=== PATIENT | female | born 1995 | race Caucasian/White ===

== ENCOUNTER 2016-12-09 21:26 | Emergency (ER) | payer OTHER ==
[~2016-12-09] VITALS: Ht 167.6 cm; Wt 66.7 kg
[~2016-12-09 21:26] MED LIST: ABILIFY20 MG PO; ANAPROX DS550 MG PO; AVPAK AZITHROM250 M1 PO; BACTRIM DS 8001 TA1 PO; BIRTH CONTROL1 EAC1 PO; BIRTHCONTROL PO; CLARITIN10 MG PO; CLEOCIN150 MG PO; CLINDAMYCIN HC300 MG PO; DESOGESTREL-ETH1 TAB PO; DICLEGIS DR 101 EACH PO; DIFLUCAN150 MG PO; DO NOT PROFILE T1 EA; FLONASE ALLERG9.9 ML NAS; HYDROCODONE BIT1 T11 PO; IBU800 M1 PO; KEFLEX500 M1 PO; KEFLEX500 MG PO; LIDEX 0.05% CRE15 GM T; MACROBID100 M1 PO; MEDROL DOSEPAK4 MG PO; MOTRIN800 MG PO; MYCOLOG CREAM 115 GM T; NAPROSYN500 MG PO; OMNICEF300 MG PO; PEN-VEE K500 MG PO; PEN-VK500 MG PO; PENICILLIN-VK500 M1 PO; PREDNISONE10 MG PO; PREDNISONE20 M1 PO; PRENATAL1 TA3 PO; PRILOSEC20 MG PO; PROVENTIL0.09 MG/A1 INH; Peridex 473 ML473 ML PO; RANITIDINE150 MG PO; ROBITUSSIN AC 110 ML PO; TESSALON PERLE100 MG PO; ULTRAM50 MG PO; VALIUM10 MG; VIBRAMYCIN100 MG PO; XANAX1 MG PO; ZANTAC150 MG PO; ZITHROMAX Z PA250 MG; ZITHROMAX Z PA250 MG PO; ZITHROMAX250 MG PO; ZOFRAN4 MG PO; ZOLOFT50 MG PO; ZYRTEC10 MG PO; Zofran4 MG PO; [UNRECOGNIZED DRUG - REMARK] PO
[2016-12-09 21:33] VITALS: BP 107/62
[2016-12-09] MEDS ORDERED: BACITRAYCIN PLU28 GM TP (23:01)
== END 2016-12-09 23:33 | disposition home or self-care (01) ==
LOC: ED 21:26
DX: O9A.212 Injury, poisoning and certain other consequences of external causes complicating pregnancy, second trimester (principal); S80.211A Abrasion, right knee, initial encounter; Z3A.20 20 weeks gestation of pregnancy; F17.200 Nicotine dependence, unspecified, uncomplicated; W18.30XA Fall on same level, unspecified, initial encounter; Y93.89 Activity, other specified; Y92.9 Unspecified place or not applicable; Y99.9 Unspecified external cause status

== ENCOUNTER 2016-12-17 09:34 | Emergency (ER) | payer OTHER ==
[~2016-12-17] VITALS: Ht 167.6 cm; Wt 61.7 kg
[~2016-12-17 09:34] MED LIST changes: +BACITRAYCIN PLU28 GM TP
[2016-12-17 09:43] VITALS: BP 134/65
[2016-12-17] MEDS ORDERED: AMOXICILLIN500 M2 PO (10:14)
== END 2016-12-17 10:21 | disposition home or self-care (01) ==
LOC: ED 09:34
DX: O99.512 Diseases of the respiratory system complicating pregnancy, second trimester (principal); J20.9 Acute bronchitis, unspecified; F17.200 Nicotine dependence, unspecified, uncomplicated; Z79.899 Other long term (current) drug therapy; Z3A.21 21 weeks gestation of pregnancy

== ENCOUNTER 2017-03-28 21:19 | Emergency (ER) | payer OTHER ==
[~2017-03-28] VITALS: Ht 167.6 cm; Wt 74.8 kg
[~2017-03-28 21:19] MED LIST changes: +AMOXICILLIN500 M2 PO
[2017-03-28 23:32] VITALS: BP 115/70
== END 2017-03-29 00:31 | disposition other institution (70) ==
LOC: ED 21:19
DX: O26.893 Other specified pregnancy related conditions, third trimester (principal); O99.333 Smoking (tobacco) complicating pregnancy, third trimester; R10.30 Lower abdominal pain, unspecified; F17.200 Nicotine dependence, unspecified, uncomplicated; Z3A.35 35 weeks gestation of pregnancy

== ENCOUNTER 2017-06-24 18:38 | Emergency (ER) | payer OTHER ==
[~2017-06-24] VITALS: Ht 170.1 cm; Wt 61.2 kg
[2017-06-24 18:44] VITALS: BP 118/66
[2017-06-24 19:17] LABS: BILIRUBIN NEGATIVE (NEGATIVE); BLOOD TRACE-INTACT (NEGATIVE); CLARITY CLEAR (CLEAR); COLOR YELLOW (YELLOW); GLUCOSE NEGATIVE (NEGATIVE); KETONE NEGATIVE (NEGATIVE); LEUKO ESTERASE 1+ (NEGATIVE); NITRITE NEGATIVE (NEGATIVE); SPECIFIC GRAVITY >= 1.030 (1.005-1.030); UROBILINOGEN 0.2 E.U./dl (0.2-1.0)
[2017-06-24 19:30] LABS: BACTERIA 3+; EPITHELIAL CELLS 21-30
[2017-06-24] MEDS ORDERED: AMINOPHYLLIN200 MG PO (19:57)
== END 2017-06-24 20:03 | disposition home or self-care (01) ==
LOC: ED 18:38
PROVIDERS: Physician Assistant
DX: N39.0 Urinary tract infection, site not specified (principal); F17.200 Nicotine dependence, unspecified, uncomplicated; Z79.899 Other long term (current) drug therapy

== ENCOUNTER 2017-07-07 09:18 | Emergency (ER) | payer OTHER ==
[~2017-07-07] VITALS: Ht 167.6 cm; Wt 61.7 kg
[~2017-07-07 09:18] MED LIST changes: +AMINOPHYLLIN200 MG PO
[2017-07-07 09:22] VITALS: BP 111/90
[2017-07-07 10:23] LABS: BILIRUBIN NEGATIVE (NEGATIVE); BLOOD NEGATIVE (NEGATIVE); CLARITY SL CLOUDY (CLEAR); COLOR YELLOW (YELLOW); GLUCOSE NEGATIVE (NEGATIVE); KETONE NEGATIVE (NEGATIVE); LEUKO ESTERASE TRACE (NEGATIVE); NITRITE NEGATIVE (NEGATIVE); UROBILINOGEN 0.2 E.U./dl (0.2-1.0)
[2017-07-07 10:25] LABS: BASO % 0.5 % (0.0-1.0); EOS # 0.2 10*3/uL (0.0-0.4); EOS % 5.3 % (1.0-4.0); HEMOGLOBIN 12.1 g/dl (12.0-16.0); LYMPH # 1.9 10*3/uL (1.3-4.4); LYMPH % 44.5 % (27.0-41.0); MEAN CORPUSCULAR HGB 30.4 pg (27.0-31.0); MEAN CORPUSCULAR HGB CONC 32.7 g/dl (33.0-37.0); MEAN PLATELET VOLUME 11.3 fl (9.6-12.3); MONO # 0.3 10*3/uL (0.1-1.0); MONO % 8.1 % (3.0-9.0); NEUT # 1.7 10*3/uL (2.3-7.9); NEUT % 41.6 % (47.0-73.0); PLATELET COUNT AUTOMATED 231 10*3/uL (130-400); RED BLOOD COUNT 3.98 10*6/uL (4.10-5.10); WHITE BLOOD COUNT 4.2 10*3/uL (4.8-10.8)
[2017-07-07 10:35] LABS: BACTERIA 2+; EPITHELIAL CELLS 20-30
[2017-07-07 10:44] LABS: ALBUMIN 3.7 gm/dl (3.1-4.5); ALKALINE PHOSPHATASE 79 U/L (45-117); BUN 10 mg/dl (7-24); CHLORIDE 106 mmol/L (98-107); CREATININE 0.68 mg/dL (0.55-1.02); POTASSIUM 4.1 mmol/L (3.5-5.1); SGOT/AST 9 IU/L (3-35); SGPT/ALT 17 U/L (12-78); SODIUM 140 mmol/L (136-145); TOTAL PROTEIN 7.1 gm/dL (6.4-8.2)
[2017-07-07] MEDS ORDERED: AMOXICILLIN500 M2 PO (10:56)
== END 2017-07-07 11:26 | disposition home or self-care (01) ==
LOC: ED 09:18
PROVIDERS: Nurse Practitioner Family
DX: Z32.02 Encounter for pregnancy test, result negative (principal); F17.200 Nicotine dependence, unspecified, uncomplicated; R11.2 Nausea with vomiting, unspecified; Z79.899 Other long term (current) drug therapy

== ENCOUNTER 2017-09-23 19:08 | Emergency (ER) | payer OTHER ==
[~2017-09-23] VITALS: Ht 170.1 cm; Wt 61.2 kg
[2017-09-23 19:29] VITALS: BP 123/87
== END 2017-09-23 20:55 | disposition home or self-care (01) ==
LOC: ED 19:08
DX: B34.9 Viral infection, unspecified (principal); F17.200 Nicotine dependence, unspecified, uncomplicated; Q75.0 Craniosynostosis; Z79.899 Other long term (current) drug therapy

== ENCOUNTER 2017-10-19 23:08 | Emergency (ER) | payer OTHER ==
[~2017-10-19] VITALS: Ht 170.1 cm; Wt 60.3 kg
[2017-10-19 23:31] VITALS: BP 116/57
== END 2017-10-20 01:34 | disposition home or self-care (01) ==
LOC: ED 23:08
DX: S50.12XA Contusion of left forearm, initial encounter (principal); S60.222A Contusion of left hand, initial encounter; W01.0XXA Fall on same level from slipping, tripping and stumbling without subsequent striking against object, initial encounter; Y93.89 Activity, other specified; Y92.89 Other specified places as the place of occurrence of the external cause; Y99.8 Other external cause status

== ENCOUNTER 2017-11-15 18:57 | Emergency (ER) | payer OTHER ==
[~2017-11-15] VITALS: Ht 170.1 cm; Wt 59.0 kg
[2017-11-15 19:00] VITALS: BP 104/88
[2017-11-15 19:53] LABS: BILIRUBIN NEGATIVE (NEGATIVE); BLOOD TRACE-INTACT (NEGATIVE); CLARITY SL CLOUDY (CLEAR); COLOR YELLOW (YELLOW); GLUCOSE NEGATIVE (NEGATIVE); KETONE NEGATIVE (NEGATIVE); LEUKO ESTERASE 1+ (NEGATIVE); NITRITE NEGATIVE (NEGATIVE); SPECIFIC GRAVITY >= 1.030 (1.005-1.030); UROBILINOGEN 0.2 E.U./dl (0.2-1.0)
[2017-11-15 20:03] LABS: BACTERIA 1+; EPITHELIAL CELLS 31-40
[2017-11-15 20:04] LABS: WBC 21-30 wbc/hpf (0-5)
[2017-11-15] MEDS ORDERED: SEPTDS PO ×2 (20:19→20:41)
== END 2017-11-15 20:28 | disposition home or self-care (01) ==
LOC: ED 18:57
PROVIDERS: Physician Assistant
DX: Z32.02 Encounter for pregnancy test, result negative (principal); R53.83 Other fatigue; N39.0 Urinary tract infection, site not specified

== ENCOUNTER 2018-12-06 20:07 | Emergency (ER) | payer OTHER ==
[~2018-12-06] VITALS: Ht 170.1 cm; Wt 72.1 kg
[~2018-12-06 20:07] MED LIST changes: +SEPTDS PO
[2018-12-06 20:10] VITALS: BP 112/77
[2018-12-06 20:44] LABS: BILIRUBIN NEGATIVE (NEGATIVE); BLOOD NEGATIVE (NEGATIVE); CLARITY SL CLOUDY (CLEAR); COLOR YELLOW (YELLOW); GLUCOSE NEGATIVE (NEGATIVE); KETONE NEGATIVE (NEGATIVE); LEUKO ESTERASE NEGATIVE (NEGATIVE); NITRITE NEGATIVE (NEGATIVE); SPECIFIC GRAVITY 1.015 (1.005-1.030)
[2018-12-06 20:51] LABS: BACTERIA 1+
[2018-12-09 00:03] LABS: GONOCOCCUS BY NAA Negative (Negative)
== END 2018-12-06 21:59 | disposition home or self-care (01) ==
LOC: ED 20:07
PROVIDERS: Emergency Medicine; Internal Medicine
DX: N89.8 Other specified noninflammatory disorders of vagina (principal); J45.909 Unspecified asthma, uncomplicated; Z79.2 Long term (current) use of antibiotics

== ENCOUNTER 2018-12-11 15:24 | Emergency (ER) | payer OTHER ==
[~2018-12-11] VITALS: Ht 170.1 cm; Wt 59.0 kg
[2018-12-11 16:59] VITALS: BP 105/43
== END 2018-12-11 17:40 | disposition home or self-care (01) ==
LOC: ED 15:24
DX: S09.90XA Unspecified injury of head, initial encounter (principal); H53.8 Other visual disturbances; R42 Dizziness and giddiness; F17.200 Nicotine dependence, unspecified, uncomplicated; Z79.2 Long term (current) use of antibiotics; W50.0XXA Accidental hit or strike by another person, initial encounter; Y93.89 Activity, other specified; Y92.59 Other trade areas as the place of occurrence of the external cause; Y99.8 Other external cause status

== ENCOUNTER 2019-02-09 20:22 | Emergency (ER) | payer OTHER ==
[~2019-02-09] VITALS: Ht 170.1 cm; Wt 56.7 kg
[2019-02-09 20:24] VITALS: BP 116/53
[2019-02-09 20:58] LABS: BILIRUBIN NEGATIVE (NEGATIVE); BLOOD 1+ (NEGATIVE); CLARITY SL CLOUDY (CLEAR); COLOR YELLOW (YELLOW); GLUCOSE NEGATIVE (NEGATIVE); KETONE NEGATIVE (NEGATIVE); LEUKO ESTERASE NEGATIVE (NEGATIVE); NITRITE NEGATIVE (NEGATIVE); SPECIFIC GRAVITY >= 1.030 (1.005-1.030); UROBILINOGEN 0.2 E.U./dl (0.2-1.0)
[2019-02-09 21:08] LABS: BACTERIA 2+; CALCIUM OXALATE CRYSTALS 1+; EPITHELIAL CELLS 21-30
== END 2019-02-09 22:20 | disposition left against medical advice (07) ==
LOC: ED 20:22
PROVIDERS: Nurse Practitioner Family
DX: R10.9 Unspecified abdominal pain (principal); Z32.02 Encounter for pregnancy test, result negative; F17.210 Nicotine dependence, cigarettes, uncomplicated

== ENCOUNTER → 2019-02-18 | Outpatient (CLI) | payer OTHER ==
[2019-02-18 10:42] LABS: BASO % 0.5 % (0.0-1.0); EOS # 0.3 10*3/uL (0.0-0.4); EOS % 5.7 % (1.0-4.0); HEMATOCRIT 41.8 % (37.0-47.0); HEMOGLOBIN 13.8 g/dl (12.0-16.0); LYMPH % 34.2 % (27.0-41.0); MEAN CELL VOLUME 97.4 fl (81.0-99.0); MEAN CORPUSCULAR HGB 32.2 pg (27.0-31.0); MEAN PLATELET VOLUME 11.7 fl (9.6-12.3); MONO # 0.4 10*3/uL (0.1-1.0); MONO % 7.2 % (3.0-9.0); NEUT # 3.1 10*3/uL (2.3-7.9); NEUT % 52.2 % (47.0-73.0); PLATELET COUNT AUTOMATED 172 10*3/uL (130-400); RED BLOOD COUNT 4.29 10*6/uL (4.10-5.10); RED CELL DISTRI WIDTH 12.2 % (0-14.5)
[2019-02-18 11:00] LABS: ALKALINE PHOSPHATASE 61 U/L (45-117); BUN 9 mg/dl (7-24); CHLORIDE 114 mmol/L (98-107); CREATININE 0.75 mg/dL (0.55-1.02); POTASSIUM 3.8 mmol/L (3.5-5.1); SGOT/AST 10 IU/L (3-35); SGPT/ALT 17 U/L (12-78); SODIUM 142 mmol/L (136-145); TOTAL PROTEIN 7.2 gm/dL (6.4-8.2)
== END | disposition home or self-care (01) ==
LOC: US 08:30 → LAB 10:21
PROVIDERS: Pediatrics
DX: N39.0 Urinary tract infection, site not specified (principal); K52.9 Noninfective gastroenteritis and colitis, unspecified; R07.89 Other chest pain

== ENCOUNTER → 2019-05-04 | Outpatient (CLI) | payer OTHER | END | disposition home or self-care (01) | LOC: LAB 14:00 | DX: N91.2 Amenorrhea, unspecified (principal) ==

== ENCOUNTER 2019-10-16 14:11 | Emergency (ER) | payer OTHER ==
[~2019-10-16] VITALS: Ht 170.1 cm; Wt 54.4 kg
[2019-10-16 14:27] VITALS: BP 107/84
[2019-10-16 14:49] LABS: COLOR YELLOW (YELLOW)
[2019-10-16 14:50] LABS: BILIRUBIN NEGATIVE (NEGATIVE); BLOOD 1+ (NEGATIVE); CLARITY SL CLOUDY (CLEAR); GLUCOSE NEGATIVE (NEGATIVE); KETONE NEGATIVE (NEGATIVE); LEUKO ESTERASE NEGATIVE (NEGATIVE); NITRITE NEGATIVE (NEGATIVE); UROBILINOGEN 0.2 E.U./dl (0.2-1.0)
[2019-10-16 15:12] LABS: BASO % 0.4 % (0.0-1.0); EOS # 0.3 10*3/uL (0.0-0.4); EOS % 4.5 % (1.0-4.0); HEMATOCRIT 36.6 % (37.0-47.0); HEMOGLOBIN 12.2 g/dl (12.0-16.0); LYMPH # 2.9 10*3/uL (1.3-4.4); LYMPH % 43.1 % (27.0-41.0); MEAN CELL VOLUME 96.1 fl (81.0-99.0); MEAN CORPUSCULAR HGB CONC 33.3 g/dl (33.0-37.0); MEAN PLATELET VOLUME 11.2 fl (9.6-12.3); MONO # 0.5 10*3/uL (0.1-1.0); MONO % 7.2 % (3.0-9.0); NEUT % 44.7 % (47.0-73.0); PLATELET COUNT AUTOMATED 197 10*3/uL (130-400); RED BLOOD COUNT 3.81 10*6/uL (4.10-5.10); RED CELL DISTRI WIDTH 11.9 % (0-14.5); WHITE BLOOD COUNT 6.7 10*3/uL (4.8-10.8)
[2019-10-16 15:14] LABS: BACTERIA 2+; MUCOUS TRACE; RBC 0-2 rbc/hpf (0-2)
[2019-10-16 15:29] LABS: ALKALINE PHOSPHATASE 53 U/L (45-117); BUN 6 mg/dl (7-24); CHLORIDE 110 mmol/L (98-107); CREATININE 0.54 mg/dL (0.55-1.02); POTASSIUM 3.8 mmol/L (3.5-5.1); SGOT/AST 5 IU/L (3-35); SGPT/ALT 13 U/L (12-78); SODIUM 139 mmol/L (136-145); TOTAL PROTEIN 6.9 gm/dL (6.4-8.2)
[2019-10-16] MEDS ORDERED: DICLEGIS DR 101 EACH PO (15:51)
[2019-10-16] MEDS ORDERED: PRENATE ELITE1 EAC1 PO (15:51)
[2019-10-16] MEDS ORDERED: ALIVE PRENATAL1 EACH PO (16:04)
== END 2019-10-16 16:01 | disposition home or self-care (01) ==
LOC: ED 14:11
PROVIDERS: Nurse Practitioner Family
DX: O21.8 Other vomiting complicating pregnancy (principal); O99.511 Diseases of the respiratory system complicating pregnancy, first trimester; J45.909 Unspecified asthma, uncomplicated; Z3A.01 Less than 8 weeks gestation of pregnancy

== ENCOUNTER 2020-10-16 15:34 | Emergency (ER) | payer OTHER ==
[~2020-10-16] VITALS: Ht 167.6 cm; Wt 61.2 kg
[~2020-10-16 15:34] MED LIST changes: +ALIVE PRENATAL1 EACH PO; +PRENATE ELITE1 EAC1 PO
[2020-10-16 15:43] VITALS: BP 110/84
[2020-10-16 16:16] LABS: BASO % 0.6 % (0.0-1.0); EOS # 0.2 10*3/uL (0.0-0.4); EOS % 3.2 % (1.0-4.0); HEMATOCRIT 39.4 % (37.0-47.0); LYMPH # 2.3 10*3/uL (1.3-4.4); LYMPH % 36.6 % (27.0-41.0); MEAN CELL VOLUME 93.1 fl (81.0-99.0); MEAN CORPUSCULAR HGB CONC 33.2 g/dl (33.0-37.0); MEAN PLATELET VOLUME 11.3 fl (9.6-12.3); MONO # 0.4 10*3/uL (0.1-1.0); MONO % 5.9 % (3.0-9.0); NEUT # 3.3 10*3/uL (2.3-7.9); NEUT % 53.2 % (47.0-73.0); PLATELET COUNT AUTOMATED 255 10*3/uL (130-400); RED BLOOD COUNT 4.23 10*6/uL (4.10-5.10); RED CELL DISTRI WIDTH 12.3 % (0-14.5); WHITE BLOOD COUNT 6.3 10*3/uL (4.8-10.8)
[2020-10-16 16:32] LABS: ALBUMIN 4.1 gm/dl (3.1-4.5); ALKALINE PHOSPHATASE 97 U/L (45-117); BUN 7 mg/dl (7-24); CHLORIDE 111 mmol/L (98-107); POTASSIUM 4.1 mmol/L (3.5-5.1); SGOT/AST 10 IU/L (3-35); SGPT/ALT 16 U/L (12-78); SODIUM 144 mmol/L (136-145); TOTAL PROTEIN 7.5 gm/dL (6.4-8.2)
[2020-10-16 16:57] LABS: BILIRUBIN Negative (Negative); BLOOD Negative (Negative); CLARITY Clear (Clear); COLOR Yellow (Yellow); GLUCOSE Negative (Negative); KETONE Negative (Negative); LEUKO ESTERASE 3+ (Negative); NITRITE Negative (Negative); PH 6.5 (4.5-8.0); UROBILINOGEN 0.2 E.U./dl (0.0-1.0)
[2020-10-16 17:07] LABS: BACTERIA 1+; WBC 16-20 wbc/hpf (0-5)
[2020-10-16] MEDS ORDERED: MACROBID100 M1 PO (18:26)
== END 2020-10-16 18:42 | disposition home or self-care (01) ==
LOC: ED 15:34
PROVIDERS: Nurse Practitioner
DX: N39.0 Urinary tract infection, site not specified (principal); R42 Dizziness and giddiness; M79.602 Pain in left arm; J45.909 Unspecified asthma, uncomplicated; F31.9 Bipolar disorder, unspecified; Z20.822 Contact with and (suspected) exposure to COVID-19; Z79.899 Other long term (current) drug therapy

== ENCOUNTER 2021-03-23 15:58 | Emergency (ER) | payer OTHER ==
[~2021-03-23] VITALS: Ht 167.6 cm; Wt 49.9 kg
[2021-03-23 16:04] VITALS: BP 130/80
[2021-03-23] MEDS ORDERED: ZOLOFT25 MG PO (18:01)
[2021-03-23] MEDS ORDERED: VISTARIL25 M2 PO (18:01)
== END 2021-03-23 18:31 | disposition home or self-care (01) ==
LOC: ED 15:58
DX: F32.9 Major depressive disorder, single episode, unspecified (principal); Z79.899 Other long term (current) drug therapy; Z79.2 Long term (current) use of antibiotics